=== PATIENT | female | born 1960 | race Caucasian/White ===

== ENCOUNTER → 2022-02-04 | Outpatient (CLI) | payer OTHER ==
[~2022-02-04] MED LIST: FAMOTIDINE20 MG PO; FISH OIL 1,4001 EACH PO; HAIR, SKIN & N1 EACH PO; TUMERIC PO
[2022-02-04 13:53] LABS: HEMOGLOBIN 13.6 gm/dl (12.3-15.3); RED BLOOD COUNT 4.65 M/UL (4.00-5.10); WHITE BLOOD COUNT 6.1 K/UL (4.5-11.0)
[2022-02-04 14:26] LABS: BUN/CREATININE RATIO 32 (0-10)
== END ==
LOC: EDSTATUS 12:30 → OPSV2 12:30
PROVIDERS: Orthopaedic Surgery
DX: Z01.818 Encounter for other preprocedural examination (principal); M16.12 Unilateral primary osteoarthritis, left hip; Z91.040 Latex allergy status
CPT/HCPCS: 36415; 71046; 80048; 85025; 93005

== ENCOUNTER → 2022-02-16 | Outpatient (CLI) | payer OTHER ==
[~2022-02-16] MED LIST changes: +ELIQUIS2.5 MG PO; +HYDROCODON-ACE1 EAC2 PO
[2022-02-16 12:40] LABS: BUN/CREATININE RATIO 26 (0-10)
== END ==
LOC: LAB 11:25
PROVIDERS: Orthopaedic Surgery
DX: Z01.812 Encounter for preprocedural laboratory examination (principal); M16.12 Unilateral primary osteoarthritis, left hip
CPT/HCPCS: 36415; 80048; 86850; 86900; 86901

== ENCOUNTER → 2022-02-17 | Day surgery (SDC) | payer OTHER | END | disposition home or self-care (01) | LOC: OR 05:24 | DX: M16.12 Unilateral primary osteoarthritis, left hip (principal); K58.9 Irritable bowel syndrome, unspecified; E66.9 Obesity, unspecified; Z91.040 Latex allergy status | CPT/HCPCS: 72170; 73502; 76000; 97116; 97162; 97166; 97530; 97535; C1776; J0690; J1100; J1170; J1200; J1885; J2250; J2274; J2405; J2704; J2710; J3010; J3370; J3475; J7050 ==